=== PATIENT | male | born 1995 | race Caucasian/White ===

== ENCOUNTER 2016-07-10 10:47 | Emergency (ER) | payer MEDICAID ==
[2016-07-10] MEDS ORDERED: Sodium Chloride 0.9% 1,000 ML IV ONE (10:51)
--- NOTE | 2016-07-10 10:52 | ED Physician Chart ---
Chief Complaint/HPI - Patient Information Date Seen:: 07/10/16 Time Seen:: 10:51 Chief Complaint:: vomiting History of Present Illness:: 21-year-old male, otherwise healthy, complains of acute, constant, severe, vomiting 11 hours. Has associated nausea but no particular abdominal pain. Also has associated acute, constant, aching, worse with swallowing, severe, 9 out of 10, nonradiating, sore throat. Allergies:: Allergies Allergy/AdvReac Type Severity Reaction Status Date / Time No Known Allergies Allergy Verified 11/19/15 11:19 Historian:: Patient Review:: Nurse's Note Reviewed Review of Systems - Review of Systems Other: Complete system review otherwise unremarkable except as noted in history of present illness. Past Medical History - Past Medical History Past Medical History: No significant medical hx Family History: None Social History: Non Smoker, No Alcohol, No Drug Use, Employed Surgical History: None Psychiatricy History: None Medication: None Family Medical History - Family Member Mother Ethnicity: Non- Living Status: Still Living Hx Family Cancer: No Hx Family Congestive Heart Failure: No Hx Family Hypertension: No Physical Exam - Physical Examination Other:: INITIAL VITAL SIGNS: Reviewed by me GENERAL: Alert and interactive. No acute distress HEAD: Head is normocephalic and atraumatic EYES: EOMI. PERRL. No scleral icterus. No conjunctival injection ENT: Tonsils +2 edematous, erythematous and with exudate NECK: Supple. Positive bilateral cervical adenopathy. Full range of motion RESPIRATORY: No tachypnea. Clear breath sounds bilaterally. No wheezing, rales, or rhonchi CV: Regular rate and rhythm. No murmurs, rubs, or gallops ABDOMEN: Soft, non-distended, non-tender. No guarding. No rebound. No masses. EXTREMITIES: No deformity. No cyanosis. No edema. SKIN: Warm and dry. No obvious rashes. NEUROLOGIC: Alert and oriented. Face is symmetric. Speech is normal. Moves all extremities equally. Motor and sensory distally intact. Labs/Radiology/EKG Results - EKG Interpretations Comments:: 12-lead EKG Interpretation by Pinky Scales MD: Normal Sinus Rhythm with ventricular rate of 86 beats per minute Normal axis Normal intervals No acute ST or T wave changes. No obvious STEMI ED Septic Shock - . Is Septic Shock (SBP<90, OR Lactate>4 mmol\L) present?: No Reassessment (Disposition) - Reassessment Reassessment:: Patient has leukocytosis. All laboratory abnormalities discussed with patient. UA consistent with UTI. However consider STD. Treating for UTI with Macrobid Rx. Chlamydia gonorrhea DNA probe to urine ordered. Acute vomiting likely due to enlarged tonsils and acute strep throat. No particular abdominal pain. Patient received IV fluids, IV Toradol, IV Zofran, IV Decadron. Also received definitive treatment for strep throat with intramuscular Bicillin 1.2 million units. The patient felt improved. Recommended follow-up with PCP 1-2 days. Gave return to ER precautions. Patient says he understands and agrees with the plan. Blood pressure was noted to be elevated over 120/80. There were no signs of hypertension. Discussed the findings with the patient and recommended that the patient follow up with the primary care physician regarding the elevated blood pressure. Reassessment Condition:: Improved - Diagnosis Diagnosis:: Acute vomiting and sore throat due to acute strep throat Elevated blood pressure without diagnosis of hypertension - Aftercare/Follow up Instructions Aftercare/Follow-Up Instructions:: Counseled pt regarding lab results/diagnosis & need follow up, Refer to Discharge Instructions Medication Prescribed:: Ibuprofen - Patient Disposition Discharge/Transfer:: Home Condition at Disposition:: Improved ED Discharge Plan - Patient Disposition Admit/Discharge/Transfer: PT DISCHARGED HOME Condition at Disposition: Improved Instructions: Strep Throat
[2016-07-10] MEDS ORDERED: Dexamethasone Sodium Phos 4 mg/mL Vial IVP STA (11:01)
[2016-07-10] MEDS ORDERED: Dexamethasone Sodium Phos 10 mg/mL PF Vial ONE (11:04)
[2016-07-10 11:13] LABS: HEMATOCRIT 45.3 % (39.0-49.0); HEMOGLOBIN 15.6 gm/dL (13.2-17.3); MEAN CELL VOLUME 92.3 fl (80-99); MEAN CORPUSCULAR HEMOGLOBIN 31.7 pg (26.0-30.0); MEAN CORPUSCULAR HGB CONC 34.4 pg (28.0-36.0); PLATELET COUNT 201 Th/cmm (150-400); RED BLOOD COUNT 4.91 Mil/cmm (4.30-5.70); RED CELL DISTRIBUTION WIDTH 11.4 % (11.5-20.0)
[2016-07-10 11:16] LABS: WHITE BLOOD COUNT 16.5 Th/cmm (4.8-10.8)
[2016-07-10 11:24] LABS: ALB/GLOB RATIO 1.6 (1.0-1.8); ALKALINE PHOSPHATASE 87 U/L (34-104); AMYLASE SERUM 23 U/L (29-103); ANION GAP 9.6 (7.0-16.0); BILIRUBIN,TOTAL 1.8 mg/dL (0.3-1.0); BUN - UREA NITROGEN 12 mg/dL (7-25); CALCIUM SERUM 10.2 mg/dL (8.6-10.3); CHLORIDE 101 mEq/L (98-107); CREATININE - SERUM 0.8 mg/dL (0.7-1.3); GLUCOSE 126 mg/dL (70-105); LIPASE 10 U/L (11-82); POTASSIUM SERUM 3.6 mEq/L (3.5-5.1); SGOT 18 U/L (13-39); SGPT/ALT 10 U/L (7-52); SODIUM SERUM 133 mEq/L (136-145)
[2016-07-10 11:43] LABS: URINE BILIRUBIN MODERATE (NEGATIVE); URINE GLUCOSE (UA) NEGATIVE (NEGATIVE)
[2016-07-10 11:44] LABS: URINE BLOOD MODERATE (NEGATIVE); URINE KETONE >=80 mg/dL (NEGATIVE); URINE PROTEIN 100 mg/dL (NEGATIVE)
[2016-07-10 11:49] LABS: URINE COLOR DARK YELLOW
[2016-07-10 11:50] LABS: URINE BACTERIA FEW /hpf (NONE SEEN); URINE EPITHELIAL CELLS RARE /lpf (FEW); URINE WBC 0-2 /hpf (0-5)
[2016-07-10 12:13] LABS: BAND NEUTROPHILE 6 % (0-10); NEUTROPHILS 76 % (40-80); PLATELET ESTIMATE ADEQUATE (NORMAL); PLATELET MORPHOLOGY NORMAL (NORMAL); TOTAL CELLS COUNTED 100
== END 2016-07-10 12:17 | disposition home or self-care (01) ==
LOC: ER 10:47
DX: J02.0 Streptococcal pharyngitis (principal); R03.0 Elevated blood-pressure reading, without diagnosis of hypertension
CPT/HCPCS: 99285; 96374; 96375; 96372; 93005; 36415; 83605; 85007; 85027; 81001; 82150; 83690; 80053; 87040 ×2; J0561; J1885; J2405; J7030